=== PATIENT | male | born 1965 | race Caucasian/White ===

== ENCOUNTER 2020-01-13 08:32 | Emergency (ER) | payer OTHER ==
[~2020-01-13] VITALS: Ht 167.6 cm; Wt 120.5 kg
[2020-01-13 09:31] LABS: POTASSIUM 4.6 mmol/L (3.5-5.1)
[2020-01-13 09:33] LABS: CALCIUM 8.6 mg/dL (8.3-10.5)
[2020-01-13 09:41] LABS: HEMATOCRIT 44.9 % (42.0-52.0); HEMOGLOBIN 14.5 g/dL (13.5-18.0); MEAN CELL VOLUME 86 fl (78-100); MEAN CORPUSCULAR HEMOGLOBIN 28 pg (27-31); MEAN CORPUSCULAR HGB CONC 32 g/dL (33-37); MEAN PLATELET VOLUME 9.4 fl (7.4-10.4); PLATELET COUNT 318 K/mm3 (130-400); RED BLOOD COUNT 5.22 M/mm3 (4.20-5.60); WHITE BLOOD COUNT 17.4 K/mm3 (4.8-10.8)
[2020-01-13 10:31] LABS: BAND 3 % (0-10); LYMPHOCYTE 9 % (20-51); MONOCYTE 3 % (3-10); NEUTROPHILS 85 % (42-75)
[2020-01-13 10:34] LABS: URINE APPEARANCE CLOUDY; URINE COLOR YELLOW
[2020-01-13 10:35] LABS: URINE BILIRUBIN NEGATIVE (NEGATIVE); URINE BLOOD 50 ery/uL (NEGATIVE); URINE GLUCOSE NEGATIVE (NEGATIVE); URINE KETONE NEGATIVE (NEGATIVE); URINE LEUKOCYTE ESTERASE 1+ (NEGATIVE); URINE NITRATE POSITIVE (NEGATIVE); URINE PROTEIN(semi-quant) 1+ mg/dL (NEGATIVE); URINE UROBILINOGEN NORMAL (NORMAL); URINE WBC >50 /hpf (0-3)
[2020-01-13] MEDS ORDERED: LEVOFLOXACIN500 M1 PO (11:44)
[2020-01-13] MEDS ORDERED: NORCO 325 MG-51 TA1 PO (11:44)
[2020-01-13 11:55] VITALS: BP 125/53
== END 2020-01-13 11:51 | disposition home or self-care (01) ==
LOC: ED 08:32
PROVIDERS: Family Medicine
DX: N12 Tubulo-interstitial nephritis, not specified as acute or chronic (principal); F17.200 Nicotine dependence, unspecified, uncomplicated
CPT/HCPCS: J1885

== ENCOUNTER 2021-01-10 15:21 | Emergency (ER) | payer OTHER ==
[~2021-01-10] VITALS: Ht 167.6 cm; Wt 118.2 kg
[~2021-01-10 15:21] MED LIST: LEVOFLOXACIN500 M1 PO; NORCO 325 MG-51 TA1 PO
[2021-01-10] MEDS ORDERED: NORCO 325 MG-51 TA1 PO ×2 (17:55→17:57)
[2021-01-10] MEDS ORDERED: CEPHALEXIN500 M1 PO (17:55)
[2021-01-10 18:33] VITALS: BP 166/82
== END 2021-01-10 18:33 | disposition home or self-care (01) ==
LOC: ED 15:21
DX: S62.631A Displaced fracture of distal phalanx of left index finger, initial encounter for closed fracture (principal); W23.0XXA Caught, crushed, jammed, or pinched between moving objects, initial encounter; Y92.59 Other trade areas as the place of occurrence of the external cause; Y99.0 Civilian activity done for income or pay
CPT/HCPCS: J0690; J1885

== ENCOUNTER → 2023-08-19 | Outpatient (CLI) | payer SELFPAY ==
[~2023-08-19] MED LIST changes: +CEPHALEXIN500 M1 PO; +Iohexol 300 - 100 ML VIAL IV ONE
== END ==
LOC: RAD 09:04
DX: R14.0 Abdominal distension (gaseous) (principal); R05.9 Cough, unspecified; R59.9 Enlarged lymph nodes, unspecified
CPT/HCPCS: Q9967